=== PATIENT | female | born 1985 | race Caucasian/White ===

== ENCOUNTER 2022-05-16 17:16 | Inpatient (IN) | payer OTHER ==
[~2022-05-16 17:16] MED LIST: Bupivacaine 0.25% 10 ML SDV ONE; Lidocaine 1.5% with EPINEPHrine 1:200,000 5 ML Amp ONE
[2022-05-16] MEDS ORDERED: Calcium Carbonate 500 MG Tab.Chew PO PRN (17:18)
[2022-05-16] MEDS ORDERED: Sodium Chloride 0.9% 10 ML Syringe FLUSH PRN (17:18)
[2022-05-16] MEDS ORDERED: Ondansetron 4 MG/2 ML SDV IVPUSH PRN (17:18)
[2022-05-16] MEDS: Lactated Ringers 1,000 ML IV SCH ×2 (18:23→21:08)
[2022-05-16] MEDS: Oxytocin/Lactated Ringers 10 UNIT/1,000 ML BAG IV SCH (18:25)
[2022-05-16] MEDS ORDERED: ePHEDrine 50 MG/ML SDV IVPUSH PRN (19:54)
[2022-05-16] MEDS ORDERED: fentaNYL 100 MCG/2 ML SDV ONE (19:59)
[2022-05-16] MEDS: fentaNYL 100 MCG/2 ML SDV EPIDUR PRN (20:01)
[2022-05-16] MEDS: Bupivacaine/fentaNYL/NS 100 ML Bag EPIDUR PRN (20:04)
[2022-05-16] MEDS ORDERED: Sodium Chloride 0.9% 10 ML Syringe FLUSH SCH (21:00)
[2022-05-16] MEDS: diphenhydrAMINE 50 MG/ML SDV IVPUSH PRN (22:08)
[2022-05-16] MEDS ORDERED: Lactated Ringers 1,000 ML IRR ONE (23:57)
[2022-05-17] MEDS: fentaNYL 100 MCG/2 ML SDV EPIDUR PRN (00:33)
[2022-05-17] MEDS: Lactated Ringers 1,000 ML IV SCH (00:34)
[2022-05-17] MEDS: Bupivacaine/fentaNYL/NS 100 ML Bag EPIDUR PRN ×2 (02:40→07:38)
[2022-05-17] MEDS: diphenhydrAMINE 50 MG/ML SDV IVPUSH PRN (04:48)
[2022-05-17] MEDS: Oxytocin/Lactated Ringers 10 UNIT/1,000 ML BAG IV SCH (06:01)
[2022-05-17] MEDS: Lactated Ringers 1,000 ML IRR ONE ×2 (06:18→10:23)
[2022-05-17] MEDS ORDERED: Lidocaine 2% with EPINEPHrine 1:200,000 20 ML SDV ONE (10:01)
[2022-05-17] MEDS ORDERED: Sodium Bicarbonate 8.4% 50 MEQ/50 ML SDV ONE (10:01)
[2022-05-17] MEDS ORDERED: Ondansetron 4 MG/2 ML SDV ONE (10:03)
[2022-05-17] MEDS ORDERED: Bupivacaine 0.5% 30 ML SDV ONE (10:05)
[2022-05-17] MEDS ORDERED: Azithromycin 500 MG in Sodium Chloride 0.9% 250 ML IV ONE (10:12)
[2022-05-17] MEDS ORDERED: Clindamycin Phosphate in D5W 900 MG in Premix Bag 1 BAG IV ONE ×2 (10:13)
[2022-05-17] MEDS ORDERED: Citric Acid/Sodium Citrate Solution 30 ML Cup PO ONE (10:15)
[2022-05-17] MEDS ORDERED: Metoclopramide 10 MG/2 ML SDV IVPUSH ONE (10:15)
[2022-05-17] MEDS ORDERED: Meperidine 50 MG/ML Vial IVPUSH PRN (10:38)
[2022-05-17] MEDS ORDERED: Ondansetron 4 MG/2 ML SDV IVPUSH PRN (10:38)
[2022-05-17] MEDS ORDERED: fentaNYL 100 MCG/2 ML SDV IVPUSH PRN (10:38)
[2022-05-17] MEDS ORDERED: diphenhydrAMINE 50 MG/ML SDV IVPUSH PRN ×2 (10:38→12:12)
[2022-05-17] MEDS ORDERED: Morphine PF 10 MG/10 ML SDV ONE (10:49)
[2022-05-17] MEDS ORDERED: Lactated Ringers 1,000 ML ONE ×2 (10:59→11:02)
[2022-05-17] MEDS ORDERED: Oxytocin 10 Units/1 ML SDV ONE (10:59)
[2022-05-17] MEDS ORDERED: Ketorolac 30 MG/ML SDV ONE (11:05)
[2022-05-17] MEDS ORDERED: Naloxone 0.4 MG/ML SDV IVPUSH PRN (12:12)
[2022-05-17] MEDS ORDERED: Acetaminophen/oxyCODONE 325-5 MG Tab PO PRN ×2 (12:12)
[2022-05-17] MEDS ORDERED: ePHEDrine 50 MG/ML SDV IVPUSH PRN (12:12)
[2022-05-17] MEDS ORDERED: Dextrose 5%-Lactated Ringers 1,000 ML IV SCH (12:12)
[2022-05-17] MEDS: Ketorolac 30 MG/ML SDV IVPUSH SCH ×2 (17:28→23:46)
[2022-05-17] MEDS: Acetaminophen/HYDROcodone 325-5 MG Tab PO PRN (21:33)
[2022-05-18] MEDS: Acetaminophen/HYDROcodone 325-5 MG Tab PO PRN ×4 (03:33→22:55)
[2022-05-18] MEDS: Ketorolac 30 MG/ML SDV IVPUSH SCH (05:15)
[2022-05-18] MEDS: Ibuprofen 800 MG Tab PO PRN ×2 (12:03→20:31)
[2022-05-18] MEDS: Docusate Sodium 100 MG Cap PO PRN (20:31)
[2022-05-18] MEDS: Simethicone 80 MG Tab.Chew PO PRN (20:32)
[2022-05-19] MEDS: Ibuprofen 800 MG Tab PO PRN ×3 (04:08→21:28)
[2022-05-19] MEDS: Acetaminophen/HYDROcodone 325-5 MG Tab PO PRN ×3 (09:50→23:26)
[2022-05-19] MEDS: Simethicone 80 MG Tab.Chew PO PRN ×2 (09:56→21:28)
[2022-05-19] MEDS: Docusate Sodium 100 MG Cap PO PRN ×2 (09:56→21:28)
[2022-05-20] MEDS: Ibuprofen 800 MG Tab PO PRN ×2 (05:44→12:48)
[2022-05-20] MEDS: Acetaminophen/HYDROcodone 325-5 MG Tab PO PRN (09:21)
[2022-05-20] MEDS: Simethicone 80 MG Tab.Chew PO PRN (11:06)
[2022-05-20] MEDS: Docusate Sodium 100 MG Cap PO PRN (11:06)
== END 2022-05-20 13:48 | disposition home or self-care (01) | DRG 788 ==
LOC: JD.OB 17:16 → OBSVTOIN 05-17 17:17
PROVIDERS: ADMIT Obstetrics & Gynecology; ATTEND Obstetrics & Gynecology
PROC: 10D00Z1 Extraction of Products of Conception, Low, Open Approach (ICD-10-PCS; principal; 2022-05-17)
PROC: 10H07YZ Insertion of Other Device into Products of Conception, Via Natural or Artificial Opening (ICD-10-PCS; 2022-05-17)
DX: O13.4 Gestational [pregnancy-induced] hypertension without significant proteinuria, complicating childbirth (principal); O76 Abnormality in fetal heart rate and rhythm complicating labor and delivery; O24.429 Gestational diabetes mellitus in childbirth, unspecified control; Z3A.37 37 weeks gestation of pregnancy; Z37.0 Single live birth; Z88.0 Allergy status to penicillin; Z91.09 Other allergy status, other than to drugs and biological substances; Z88.8 Allergy status to other drugs, medicaments and biological substances; Z88.1 Allergy status to other antibiotic agents; Z88.7 Allergy status to serum and vaccine; Z87.891 Personal history of nicotine dependence
CPT/HCPCS: 01967; 36415; 51702; 59025; 82565; 82570; 82947; 83615; 84156; 84450; 84460; 84520; 84550; 85025; 86592; 86850; 86900; 86901; 94762; A9270-GY; J0456; J1200; J1580; J1885; J2274; J2405; J2590; J2765; J3010; J3490; J7050; J7120; J7121

== ENCOUNTER 2022-05-23 02:54 | Inpatient (IN) | payer OTHER ==
[2022-05-23] MEDS ORDERED: Acetaminophen 325 MG Tab PO PRN (03:20)
[2022-05-23] MEDS: HYDROmorphone 0.5 MG/0.5 ML Syringe IVPUSH PRN ×3 (03:57→21:36)
[2022-05-23] MEDS ORDERED: Lactated Ringers 1,000 ML IV SCH (09:30)
[2022-05-23 10:50] LABS: ESTIMATED GFR 113 mL/min (>60)
[2022-05-23] MEDS: Acetaminophen/HYDROcodone 325-5 MG Tab PO PRN ×2 (11:38→21:38)
[2022-05-23] MEDS: Enoxaparin 40 MG/0.4 ML Syringe SUBCUT SCH ×2 (11:41→21:40)
[2022-05-23] MEDS: Meropenem 500 MG in Sodium Chloride 0.9% 100 ML IV SCH ×3 (12:11→21:33)
[2022-05-23] MEDS: VANCOmycin 1.25 GM/250 ML 1.25 GM in Premix Bag 1 BAG IV SCH ×2 (13:05→22:11)
[2022-05-23] MEDS: Potassium Chloride 10 MEQ in Premix Bag 1 BAG IV SCH ×3 (14:51→20:58)
[2022-05-23] MEDS ORDERED: Metoclopramide 10 MG/2 ML SDV ONE (15:14)
[2022-05-23] MEDS ORDERED: Citric Acid/Sodium Citrate Solution 30 ML Cup PO ONE (15:30)
[2022-05-23] MEDS ORDERED: Propofol 200 MG/20 ML SDV ONE (15:50)
[2022-05-23] MEDS ORDERED: Succinylcholine 200 MG/10 ML MDV ONE (15:50)
[2022-05-23] MEDS ORDERED: Lidocaine 1% 4 ML ONE (15:50)
[2022-05-23] MEDS ORDERED: Ondansetron 4 MG/2 ML SDV ONE (15:50)
[2022-05-23] MEDS ORDERED: Midazolam 1 MG/ML 2 ML SDV ONE (16:37)
[2022-05-23] MEDS ORDERED: fentaNYL 100 MCG/2 ML SDV ONE (16:38)
[2022-05-23] MEDS ORDERED: Ketamine 500 mg/10 ML MDV ONE (17:08)
[2022-05-23] MEDS ORDERED: HYDROmorphone 0.5 MG/0.5 ML Syringe ONE (17:12)
[2022-05-23] MEDS ORDERED: Bupivacaine 0.5%/EPINEPHrine 1:200,000 50 ML MDV ONE (17:19)
[2022-05-23] MEDS ORDERED: Phenylephrine HCl In 0.9% NaCl 1 MG/10 ML Vial ONE (17:24)
[2022-05-23] MEDS ORDERED: Lactated Ringers 1,000 ML ONE ×2 (17:43)
[2022-05-23] MEDS ORDERED: fentaNYL 100 MCG/2 ML SDV IVPUSH PRN (18:17)
[2022-05-23] MEDS ORDERED: Ondansetron 4 MG/2 ML SDV IVPUSH PRN (18:17)
[2022-05-23] MEDS ORDERED: HYDROmorphone 0.5 MG/0.5 ML Syringe IVPUSH PRN (18:17)
[2022-05-23] MEDS: Lactated Ringers 1,000 ML IV SCH (22:32)
[2022-05-24] MEDS: VANCOmycin 1.25 GM/250 ML 1.25 GM in Premix Bag 1 BAG IV SCH ×4 (03:29→21:35)
[2022-05-24] MEDS: Acetaminophen/HYDROcodone 325-5 MG Tab PO PRN ×5 (04:22→23:36)
[2022-05-24] MEDS: Meropenem 500 MG in Sodium Chloride 0.9% 100 ML IV SCH ×4 (04:22→21:29)
[2022-05-24] MEDS: Enoxaparin 40 MG/0.4 ML Syringe SUBCUT SCH ×2 (11:34→21:28)
[2022-05-24] MEDS: Lactated Ringers 1,000 ML IV SCH (12:45)
[2022-05-25] MEDS: Meropenem 500 MG in Sodium Chloride 0.9% 100 ML IV SCH ×4 (04:32→21:32)
[2022-05-25] MEDS: VANCOmycin 1.25 GM/250 ML 1.25 GM in Premix Bag 1 BAG IV SCH ×3 (05:33→21:33)
[2022-05-25] MEDS: Acetaminophen/HYDROcodone 325-5 MG Tab PO PRN ×5 (05:33→23:17)
[2022-05-25] MEDS: Lactated Ringers 1,000 ML IV SCH ×2 (05:44→18:02)
[2022-05-25] MEDS: Enoxaparin 40 MG/0.4 ML Syringe SUBCUT SCH ×2 (09:56→21:32)
[2022-05-25] MEDS: Potassium Chloride 10 MEQ in Premix Bag 1 BAG IV SCH ×2 (12:14→15:26)
[2022-05-25] MEDS: HYDROmorphone 0.5 MG/0.5 ML Syringe IVPUSH PRN (14:56)
[2022-05-25] MEDS ORDERED: Lidocaine 1% 2 ML ONE (15:03)
[2022-05-25] MEDS ORDERED: HYDROmorphone 1 MG/ML Syringe ONE (15:06)
[2022-05-25] MEDS ORDERED: Lidocaine 1% 4 ML ONE (15:10)
[2022-05-25] MEDS ORDERED: HYDROmorphone 1 MG/ML Syringe IVPUSH ONE (15:15)
[2022-05-25] MEDS: Potassium Chloride 20 MEQ Tab.ER PO SCH ×2 (17:16→21:31)
[2022-05-25] MEDS: Docusate Sodium 100 MG Cap PO PRN (17:16)
[2022-05-25] MEDS: Simethicone 80 MG Tab.Chew PO PRN (17:16)
[2022-05-26] MEDS: Acetaminophen/HYDROcodone 325-5 MG Tab PO PRN ×5 (03:02→20:38)
[2022-05-26] MEDS: VANCOmycin 1.25 GM/250 ML 1.25 GM in Premix Bag 1 BAG IV SCH (05:26)
[2022-05-26] MEDS: Meropenem 500 MG in Sodium Chloride 0.9% 100 ML IV SCH ×4 (05:26→22:27)
[2022-05-26] MEDS: Docusate Sodium 100 MG Cap PO PRN (07:51)
[2022-05-26] MEDS: Simethicone 80 MG Tab.Chew PO PRN (07:52)
[2022-05-26] MEDS: Enoxaparin 40 MG/0.4 ML Syringe SUBCUT SCH ×3 (09:42→22:20)
[2022-05-26] MEDS: Potassium Chloride 20 MEQ Tab.ER PO SCH ×3 (09:42→20:35)
[2022-05-26] MEDS ORDERED: VANCOmycin 1.25 GM/250 ML 1.25 GM in Premix Bag 1 BAG IV SCH ×2 (14:00→21:00)
[2022-05-26] MEDS: Lactated Ringers 1,000 ML IV SCH (15:56)
[2022-05-27] MEDS: Acetaminophen/HYDROcodone 325-5 MG Tab PO PRN ×4 (04:54→21:06)
[2022-05-27] MEDS: Meropenem 500 MG in Sodium Chloride 0.9% 100 ML IV SCH ×4 (04:54→22:44)
[2022-05-27] MEDS: Vancomycin 1 GM, Vancomycin 250 MG in Sodium Chloride 0.9% 250 ML IV SCH ×2 (09:12→22:43)
[2022-05-27] MEDS: Potassium Chloride 20 MEQ Tab.ER PO SCH ×3 (09:19→21:05)
[2022-05-27] MEDS: Enoxaparin 40 MG/0.4 ML Syringe SUBCUT SCH ×2 (09:21→22:44)
[2022-05-27] MEDS: Docusate Sodium 100 MG Cap PO PRN (13:37)
[2022-05-27] MEDS: Simethicone 80 MG Tab.Chew PO PRN (13:38)
[2022-05-27] MEDS: Lactated Ringers 1,000 ML IV SCH (17:27)
[2022-05-28] MEDS: Acetaminophen/HYDROcodone 325-5 MG Tab PO PRN ×5 (03:53→23:41)
[2022-05-28] MEDS: Meropenem 500 MG in Sodium Chloride 0.9% 100 ML IV SCH ×4 (03:54→21:23)
[2022-05-28] MEDS: Vancomycin 1 GM, Vancomycin 250 MG in Sodium Chloride 0.9% 250 ML IV SCH (09:04)
[2022-05-28] MEDS: Potassium Chloride 20 MEQ Tab.ER PO SCH (09:04)
[2022-05-28] MEDS: Enoxaparin 40 MG/0.4 ML Syringe SUBCUT SCH ×2 (09:04→21:25)
[2022-05-28] MEDS: HYDROmorphone 0.5 MG/0.5 ML Syringe IVPUSH PRN (12:04)
[2022-05-28] MEDS: Lactated Ringers 1,000 ML IV SCH (15:51)
[2022-05-28] MEDS: VANCOmycin 1.25 GM/250 ML 1.25 GM in Premix Bag 1 BAG IV SCH (23:58)
[2022-05-29] MEDS: Sodium Chloride 0.9% 1,000 ML IV SCH (00:37)
[2022-05-29] MEDS: Acetaminophen/HYDROcodone 325-5 MG Tab PO PRN ×4 (04:13→21:15)
[2022-05-29] MEDS: Meropenem 500 MG in Sodium Chloride 0.9% 100 ML IV SCH ×4 (04:15→21:17)
[2022-05-29] MEDS: VANCOmycin 1.25 GM/250 ML 1.25 GM in Premix Bag 1 BAG IV SCH ×2 (09:16→21:05)
[2022-05-29] MEDS: Enoxaparin 40 MG/0.4 ML Syringe SUBCUT SCH ×2 (10:56→21:36)
[2022-05-29] MEDS: HYDROmorphone 0.5 MG/0.5 ML Syringe IVPUSH PRN ×2 (16:13→21:04)
[2022-05-30] MEDS: Acetaminophen/HYDROcodone 325-5 MG Tab PO PRN ×5 (01:47→23:45)
[2022-05-30] MEDS: Meropenem 500 MG in Sodium Chloride 0.9% 100 ML IV SCH ×4 (04:58→21:32)
[2022-05-30] MEDS: VANCOmycin 1.25 GM/250 ML 1.25 GM in Premix Bag 1 BAG IV SCH ×2 (08:36→21:25)
[2022-05-30] MEDS: Enoxaparin 40 MG/0.4 ML Syringe SUBCUT SCH ×2 (10:05→21:32)
[2022-05-30] MEDS: HYDROmorphone 0.5 MG/0.5 ML Syringe IVPUSH PRN (13:52)
[2022-05-31] MEDS: Acetaminophen/HYDROcodone 325-5 MG Tab PO PRN ×4 (04:29→19:35)
[2022-05-31] MEDS: Meropenem 500 MG in Sodium Chloride 0.9% 100 ML IV SCH ×4 (04:32→21:18)
[2022-05-31] MEDS: VANCOmycin 1.25 GM/250 ML 1.25 GM in Premix Bag 1 BAG IV SCH ×2 (08:59→21:16)
[2022-05-31] MEDS: Enoxaparin 40 MG/0.4 ML Syringe SUBCUT SCH ×2 (09:00→21:16)
[2022-05-31] MEDS: Simethicone 80 MG Tab.Chew PO PRN (09:03)
[2022-05-31] MEDS: HYDROmorphone 0.5 MG/0.5 ML Syringe IVPUSH PRN ×2 (12:30→17:56)
[2022-05-31] MEDS ORDERED: Bupivacaine 0.5%/EPINEPHrine 1:200,000 50 ML MDV ONE (14:26)
[2022-05-31] MEDS ORDERED: Lidocaine 1% with EPINEPHrine 1:100,000 10 ML MDV ONE (14:26)
[2022-05-31] MEDS ORDERED: Citric Acid/Sodium Citrate Solution 30 ML Cup PO ONE (14:50)
[2022-05-31] MEDS ORDERED: Lidocaine 1% 4 ML ONE (16:28)
[2022-05-31] MEDS ORDERED: fentaNYL 100 MCG/2 ML SDV ONE (16:28)
[2022-05-31] MEDS ORDERED: Midazolam 1 MG/ML 2 ML SDV ONE (16:30)
[2022-05-31] MEDS ORDERED: Propofol 200 MG/20 ML SDV ONE ×2 (16:32→17:03)
[2022-05-31] MEDS: HYDROmorphone 1 MG/ML Syringe IVPUSH PRN (21:17)
[2022-05-31] MEDS: Gabapentin 100 MG Cap PO SCH (21:18)
[2022-06-01] MEDS: Acetaminophen/HYDROcodone 325-5 MG Tab PO PRN ×2 (00:09→04:54)
[2022-06-01] MEDS: Meropenem 500 MG in Sodium Chloride 0.9% 100 ML IV SCH ×4 (04:54→21:03)
[2022-06-01] MEDS: HYDROmorphone 1 MG/ML Syringe IVPUSH PRN (08:59)
[2022-06-01] MEDS: VANCOmycin 1.25 GM/250 ML 1.25 GM in Premix Bag 1 BAG IV SCH ×2 (09:00→20:57)
[2022-06-01] MEDS: Gabapentin 100 MG Cap PO SCH ×3 (09:00→20:57)
[2022-06-01] MEDS ORDERED: HYDROmorphone 1 MG/ML Syringe IVPUSH ONE (09:18)
[2022-06-01] MEDS ORDERED: Lidocaine 1% with EPINEPHrine 1:100,000 10 ML MDV INJECT ONE (09:30)
[2022-06-01] MEDS: Enoxaparin 40 MG/0.4 ML Syringe SUBCUT SCH ×2 (09:59→21:03)
[2022-06-01] MEDS ORDERED: Naloxone 0.4 MG/ML SDV IVPUSH PRN (11:42)
[2022-06-01] MEDS ORDERED: diphenhydrAMINE 25 MG Cap PO PRN (11:42)
[2022-06-01] MEDS ORDERED: Ondansetron 4 MG/2 ML SDV IVPUSH PRN (11:42)
[2022-06-01] MEDS ORDERED: diphenhydrAMINE 50 MG/ML SDV IVPUSH PRN (11:42)
[2022-06-01] MEDS: Docusate Sodium 100 MG Cap PO PRN (12:07)
[2022-06-01] MEDS: HYDROmorphone/Normal Saline 6 MG/30 ML PCA Vial IV PRN (13:48)
[2022-06-01] MEDS: Sodium Chloride 0.9% 1,000 ML IV SCH (21:02)
[2022-06-02] MEDS: Meropenem 500 MG in Sodium Chloride 0.9% 100 ML IV SCH ×4 (05:11→21:12)
[2022-06-02] MEDS: VANCOmycin 1.25 GM/250 ML 1.25 GM in Premix Bag 1 BAG IV SCH ×2 (09:29→21:12)
[2022-06-02] MEDS: Gabapentin 100 MG Cap PO SCH ×3 (09:29→21:07)
[2022-06-02] MEDS: Enoxaparin 40 MG/0.4 ML Syringe SUBCUT SCH ×2 (11:16→21:12)
[2022-06-02] MEDS: Acetaminophen 325 MG Tab PO SCH ×3 (11:17→21:07)
[2022-06-02] MEDS: HYDROmorphone/Normal Saline 6 MG/30 ML PCA Vial IV PRN (15:32)
[2022-06-02] MEDS: Simethicone 80 MG Tab.Chew PO PRN (15:42)
[2022-06-02] MEDS ORDERED: Lidocaine 1% with EPINEPHrine 1:100,000 20 ML MDV INJECT ONE (17:04)
[2022-06-02] MEDS ORDERED: HYDROmorphone 1 MG/ML Syringe IVPUSH ONE (17:06)
[2022-06-02] MEDS ORDERED: Lidocaine 1% with EPINEPHrine 1:100,000 10 ML MDV INJECT ONE (18:00)
[2022-06-02] MEDS ORDERED: Ketorolac 15 MG/ML SDV IVPUSH SCH (19:00)
[2022-06-02] MEDS: Sodium Chloride 0.9% 1,000 ML IV SCH (21:04)
[2022-06-03] MEDS: Ketorolac 15 MG/ML SDV IVPUSH SCH ×4 (04:09→21:04)
[2022-06-03] MEDS: Meropenem 500 MG in Sodium Chloride 0.9% 100 ML IV SCH ×4 (04:10→21:05)
[2022-06-03] MEDS: VANCOmycin 1.25 GM/250 ML 1.25 GM in Premix Bag 1 BAG IV SCH ×2 (10:04→20:51)
[2022-06-03] MEDS: Acetaminophen 325 MG Tab PO SCH ×3 (10:08→20:50)
[2022-06-03] MEDS: Enoxaparin 40 MG/0.4 ML Syringe SUBCUT SCH ×2 (10:09→21:04)
[2022-06-03] MEDS: Gabapentin 100 MG Cap PO SCH ×3 (10:11→20:49)
[2022-06-03] MEDS: Sodium Chloride 0.9% 1,000 ML IV SCH (23:12)
[2022-06-04] MEDS: HYDROmorphone/Normal Saline 6 MG/30 ML PCA Vial IV PRN (00:35)
[2022-06-04] MEDS: Ketorolac 15 MG/ML SDV IVPUSH SCH ×4 (04:22→21:41)
[2022-06-04] MEDS: Meropenem 500 MG in Sodium Chloride 0.9% 100 ML IV SCH ×4 (04:23→21:39)
[2022-06-04] MEDS: VANCOmycin 1.25 GM/250 ML 1.25 GM in Premix Bag 1 BAG IV SCH ×2 (08:34→21:46)
[2022-06-04] MEDS: Gabapentin 100 MG Cap PO SCH ×3 (08:35→21:44)
[2022-06-04] MEDS: Acetaminophen 325 MG Tab PO SCH ×3 (08:36→21:44)
[2022-06-04] MEDS ORDERED: Lidocaine 1% 5 ML VIAL ONE (10:47)
[2022-06-04] MEDS ORDERED: Bupivacaine 0.5%/EPINEPHrine 1:200,000 50 ML MDV ONE (10:47)
[2022-06-04] MEDS ORDERED: Propofol 200 MG/20 ML SDV ONE ×2 (10:48→11:40)
[2022-06-04] MEDS ORDERED: fentaNYL 100 MCG/2 ML SDV ONE (10:55)
[2022-06-04] MEDS ORDERED: Midazolam 1 MG/ML 2 ML SDV ONE (10:55)
[2022-06-04] MEDS ORDERED: HYDROmorphone 1 MG/ML Syringe ONE (12:19)
[2022-06-04] MEDS: Enoxaparin 40 MG/0.4 ML Syringe SUBCUT SCH ×2 (12:39→21:40)
[2022-06-04] MEDS: Docusate Sodium 100 MG Cap PO SCH (21:45)
[2022-06-05] MEDS: Ketorolac 15 MG/ML SDV IVPUSH SCH ×4 (04:03→21:20)
[2022-06-05] MEDS: Meropenem 500 MG in Sodium Chloride 0.9% 100 ML IV SCH ×4 (04:04→22:50)
[2022-06-05] MEDS: Acetaminophen 325 MG Tab PO SCH ×3 (09:25→19:29)
[2022-06-05] MEDS: VANCOmycin 1.25 GM/250 ML 1.25 GM in Premix Bag 1 BAG IV SCH ×2 (09:27→21:08)
[2022-06-05] MEDS: Gabapentin 100 MG Cap PO SCH ×3 (09:28→21:19)
[2022-06-05] MEDS: Docusate Sodium 100 MG Cap PO SCH ×2 (09:29→21:20)
[2022-06-05] MEDS: Enoxaparin 40 MG/0.4 ML Syringe SUBCUT SCH ×2 (09:34→21:21)
[2022-06-05] MEDS: Simethicone 80 MG Tab.Chew PO PRN (09:43)
[2022-06-05] MEDS: HYDROmorphone/Normal Saline 6 MG/30 ML PCA Vial IV PRN (14:50)
[2022-06-05] MEDS: Sodium Chloride 0.9% 1,000 ML IV SCH (17:59)
[2022-06-06] MEDS: Meropenem 500 MG in Sodium Chloride 0.9% 100 ML IV SCH ×4 (04:11→22:14)
[2022-06-06] MEDS: Ketorolac 15 MG/ML SDV IVPUSH SCH ×4 (04:11→20:30)
[2022-06-06] MEDS: Acetaminophen 325 MG Tab PO SCH ×3 (06:23→18:24)
[2022-06-06] MEDS ORDERED: Docusate Sodium 100 MG Cap PO PRN (08:32)
[2022-06-06] MEDS: VANCOmycin 1.25 GM/250 ML 1.25 GM in Premix Bag 1 BAG IV SCH ×2 (09:35→20:37)
[2022-06-06] MEDS: Gabapentin 100 MG Cap PO SCH ×3 (09:35→20:37)
[2022-06-06] MEDS: Enoxaparin 40 MG/0.4 ML Syringe SUBCUT SCH ×2 (11:22→22:14)
[2022-06-06] MEDS ORDERED: HYDROmorphone/Normal Saline 6 MG/30 ML PCA Vial IV PRN (11:45)
[2022-06-06] MEDS ORDERED: Sodium Chloride 0.9% 1,000 ML IV SCH (15:15)
[2022-06-06] MEDS: HYDROmorphone 2 MG Tab PO PRN (22:18)
[2022-06-07] MEDS: HYDROmorphone 2 MG Tab PO PRN ×6 (02:34→23:32)
[2022-06-07] MEDS: Ketorolac 15 MG/ML SDV IVPUSH SCH ×3 (02:35→20:18)
[2022-06-07] MEDS: Meropenem 500 MG in Sodium Chloride 0.9% 100 ML IV SCH ×4 (05:19→20:19)
[2022-06-07] MEDS: Acetaminophen 325 MG Tab PO SCH ×3 (05:35→18:18)
[2022-06-07] MEDS: VANCOmycin 1.25 GM/250 ML 1.25 GM in Premix Bag 1 BAG IV SCH ×2 (08:53→15:34)
[2022-06-07] MEDS: Gabapentin 100 MG Cap PO SCH ×3 (08:53→21:08)
[2022-06-07] MEDS: Enoxaparin 40 MG/0.4 ML Syringe SUBCUT SCH ×2 (10:45→21:09)
[2022-06-07] MEDS ORDERED: Lidocaine 1% with EPINEPHrine 1:100,000 20 ML MDV INJECT ONE (11:03)
[2022-06-07] MEDS ORDERED: HYDROmorphone 1 MG/ML Syringe ONE (11:52)
[2022-06-07] MEDS ORDERED: HYDROmorphone 1 MG/ML Syringe IV ONE (12:00)
[2022-06-07] MEDS ORDERED: Lidocaine 1% with EPINEPHrine 1:100,000 10 ML MDV INJECT ONE (12:00)
[2022-06-07] MEDS ORDERED: Lidocaine 1% 10 ML MDV ONE (12:23)
[2022-06-07] MEDS ORDERED: Calcium Carbonate 500 MG Tab.Chew PO PRN (13:55)
[2022-06-07] MEDS ORDERED: Sodium Chloride 0.9% 500 ML ONE (14:07)
[2022-06-07] MEDS: Famotidine 20 MG Tab PO SCH ×2 (14:15→21:08)
[2022-06-08] MEDS: Ketorolac 15 MG/ML SDV IVPUSH SCH ×5 (02:18→23:29)
[2022-06-08] MEDS: Meropenem 500 MG in Sodium Chloride 0.9% 100 ML IV SCH ×2 (02:18→08:54)
[2022-06-08] MEDS: VANCOmycin 1.25 GM/250 ML 1.25 GM in Premix Bag 1 BAG IV SCH (03:29)
[2022-06-08] MEDS: Acetaminophen 325 MG Tab PO SCH ×3 (05:44→17:00)
[2022-06-08] MEDS: HYDROmorphone 2 MG Tab PO PRN ×3 (07:45→19:12)
[2022-06-08] MEDS: Gabapentin 100 MG Cap PO SCH ×3 (08:53→21:15)
[2022-06-08] MEDS: Famotidine 20 MG Tab PO SCH ×2 (08:53→21:15)
[2022-06-08] MEDS: Enoxaparin 40 MG/0.4 ML Syringe SUBCUT SCH ×2 (09:00→21:14)
[2022-06-08] MEDS ORDERED: Sodium Chloride 0.9% 500 ML ONE (12:57)
[2022-06-08] MEDS ORDERED: HYDROmorphone 0.5 MG/0.5 ML Syringe IVPUSH PRN (16:42)
[2022-06-09] MEDS: HYDROmorphone 2 MG Tab PO PRN ×4 (01:00→22:24)
[2022-06-09] MEDS: Ketorolac 15 MG/ML SDV IVPUSH SCH ×3 (05:56→19:05)
[2022-06-09] MEDS: Acetaminophen 325 MG Tab PO SCH ×3 (08:35→19:05)
[2022-06-09] MEDS: Famotidine 20 MG Tab PO SCH ×2 (08:36→20:43)
[2022-06-09] MEDS: Gabapentin 100 MG Cap PO SCH ×3 (08:36→20:43)
[2022-06-09] MEDS: Enoxaparin 40 MG/0.4 ML Syringe SUBCUT SCH ×2 (11:14→22:24)
[2022-06-09] MEDS ORDERED: Sodium Chloride 0.9% 500 ML ONE (14:28)
[2022-06-10] MEDS: HYDROmorphone 2 MG Tab PO PRN ×4 (03:37→22:20)
[2022-06-10] MEDS: Ketorolac 15 MG/ML SDV IVPUSH SCH ×2 (03:37→06:36)
[2022-06-10] MEDS: Acetaminophen 325 MG Tab PO SCH (07:34)
[2022-06-10] MEDS: Gabapentin 100 MG Cap PO SCH ×3 (09:35→22:20)
[2022-06-10] MEDS: Famotidine 20 MG Tab PO SCH ×2 (09:35→22:20)
[2022-06-10] MEDS: Enoxaparin 40 MG/0.4 ML Syringe SUBCUT SCH ×2 (09:35→22:29)
[2022-06-10] MEDS: Acetaminophen 325 MG Tab PO PRN ×2 (12:06→18:24)
[2022-06-10] MEDS: Ibuprofen 600 MG Tab PO PRN (15:25)
[2022-06-10] MEDS: Sodium Chloride 0.9% 500 ML IV SCH (17:25)
[2022-06-11] MEDS: HYDROmorphone 2 MG Tab PO PRN ×4 (05:15→22:01)
[2022-06-11] MEDS: Famotidine 20 MG Tab PO SCH ×2 (09:13→21:24)
[2022-06-11] MEDS: Enoxaparin 40 MG/0.4 ML Syringe SUBCUT SCH ×2 (09:13→21:25)
[2022-06-11] MEDS: Gabapentin 100 MG Cap PO SCH ×3 (09:13→21:24)
[2022-06-11] MEDS ORDERED: HYDROmorphone 2 MG Tab PO ONE (10:15)
[2022-06-11] MEDS: Ibuprofen 600 MG Tab PO PRN ×2 (15:32→22:01)
[2022-06-11] MEDS: Sodium Chloride 0.9% 500 ML IV SCH (19:30)
[2022-06-12] MEDS: HYDROmorphone 2 MG Tab PO PRN ×3 (03:38→16:23)
[2022-06-12] MEDS: Ibuprofen 600 MG Tab PO PRN ×2 (06:37→12:02)
[2022-06-12] MEDS: Gabapentin 100 MG Cap PO SCH ×2 (09:40→14:43)
[2022-06-12] MEDS: Famotidine 20 MG Tab PO SCH (09:40)
[2022-06-12] MEDS: Enoxaparin 40 MG/0.4 ML Syringe SUBCUT SCH (09:41)
[2022-06-12] MEDS: Acetaminophen 325 MG Tab PO PRN (14:46)
== END 2022-06-12 16:39 | disposition home or self-care (01) | DRG 769 ==
LOC: JD.MS 02:54
PROVIDERS: ADMIT Internal Medicine; ATTEND Pediatrics
PROC: 0JB80ZZ Excision of Abdomen Subcutaneous Tissue and Fascia, Open Approach (ICD-10-PCS; principal; 2022-05-31)
PROC: 02HV33Z Insertion of Infusion Device into Superior Vena Cava, Percutaneous Approach (ICD-10-PCS; 2022-06-12)
DX: O75.4 Other complications of obstetric surgery and procedures (principal); M72.6 Necrotizing fasciitis; L03.311 Cellulitis of abdominal wall; O86.03 Infection of obstetric surgical wound, organ and space site; O99.53 Diseases of the respiratory system complicating the puerperium; O99.63 Diseases of the digestive system complicating the puerperium; J45.20 Mild intermittent asthma, uncomplicated; K21.9 Gastro-esophageal reflux disease without esophagitis; E87.6 Hypokalemia; H54.7 Unspecified visual loss; Z87.440 Personal history of urinary (tract) infections; G89.29 Other chronic pain; G43.909 Migraine, unspecified, not intractable, without status migrainosus; Z90.49 Acquired absence of other specified parts of digestive tract; Z86.32 Personal history of gestational diabetes; Z88.0 Allergy status to penicillin; Z91.048 Other nonmedicinal substance allergy status; Z88.6 Allergy status to analgesic agent; Z88.5 Allergy status to narcotic agent; Z91.018 Allergy to other foods; Z88.7 Allergy status to serum and vaccine; Z88.1 Allergy status to other antibiotic agents; Z90.89 Acquired absence of other organs; B95.2 Enterococcus as the cause of diseases classified elsewhere; B95.5 Unspecified streptococcus as the cause of diseases classified elsewhere
CPT/HCPCS: 00400; 36410; 36415; 74176; 74176-26; 76830; 76830-26; 76937; 80048; 80053; 80202; 82947; 83605; 83735; 84145; 85025; 85027; 85652; 86140; 87040; 87070; 87075; 87077; 87186; 87205; 94760; 94761; 94762; 97162-GP; A9270-GY; J0330; J1170; J1650; J1885; J2185; J2250; J2405; J2704; J2765; J3010; J3370; J3480; J3490; J7030; J7040; J7050; J7120